=== PATIENT | male | born 1970 | race Caucasian/White ===

== ENCOUNTER 2024-11-07 23:03 | Emergency (ER) | payer MEDICAID ==
[~2024-11-07] VITALS: Ht 177.8 cm; Wt 90.7 kg
[~2024-11-07 23:03] MED LIST: ALPR2TAB2 PO
[2024-11-07 23:12] VITALS: O2SAT 98
[2024-11-08] MEDS ORDERED: CLIN-27 PO (00:01)
[2024-11-08] MEDS ORDERED: VANCOMYCIN HCL 500 MG VIAL ONE (00:31)
[2024-11-08] MEDS ORDERED: CEFTRIAXONE 1 G VIAL ONE (00:31)
[2024-11-08 00:36] LABS: BASOPHILS # (AUTO) 0.1 K/UL (0.0-0.2); DIFFERENTIAL COMMENT 1; EOSINOPHILS # (AUTO) 0.5 K/uL (0.0-0.7); EOSINOPHILS % (AUTO) 6.1 % (0.0-7.0); HEMATOCRIT 33.9 % (36.7-47.1); HEMOGLOBIN 11.1 g/dL (12.5-16.3); LYMPHOCYTES # (AUTO) 1.9 K/uL (0.8-4.8); LYMPHOCYTES % (AUTO) 22.1 % (20.5-51.5); MEAN CORPUSCULAR HEMOGLOBIN 27.7 uug (23.8-33.4); MEAN CORPUSCULAR HGB CONC 33 g/dL (32.5-36.3); MEAN CORPUSCULAR VOLUME 84.5 fL (73.0-96.2); MONOCYTES # (AUTO) 0.8 K/uL (0.1-1.30); MONOCYTES % (AUTO) 9.9 % (0.0-11.0); NEUTROPHILS # (AUTO) 5.1 K/uL (1.8-8.9); NEUTROPHILS % (AUTO) 60.9 % (38.5-71.5); PLATELET COUNT (AUTO) 171 K/uL (152-348); RED BLOOD CELL COUNT(AUTO) 4.02 MIL/uL (4.06-5.63); RED CELL DISTRIBUTION WIDTH 14.4 % (12.1-16.2); WHITE BLOOD COUNT (AUTO) 8.4 K/uL (3.6-10.2)
[2024-11-08] MEDS: CEFTRIAXONE 1 G in IV DEXTROSE 5% 50 ML IV ONE (00:40)
[2024-11-08] MEDS: VANCOMYCIN IV 500 MG in IV DEXTROSE 5% 100 ML IV ONE (00:40)
[2024-11-08] MEDS: IV NORMAL SALINE 500 ML BAG IV ONE (00:40)
[2024-11-08 00:46] LABS: ALBUMIN 2.8 g/dL (3.4-5.0); BILIRUBIN,TOTAL 0.2 mg/dL (0.2-1.0); CALCIUM 8.5 mg/dL (8.5-10.1); CREATININE 0.9 mg/dL (0.6-1.3); MAGNESIUM 2.4 mg/dL (1.8-2.4); POTASSIUM 4.8 mmol/L (3.5-5.1); TOTAL PROTEIN, SERUM 6.9 g/dL (6.4-8.2)
[2024-11-08 00:47] LABS: C-REACTIVE PROTEIN 6.08 mg/dL (0.00-0.30)
[2024-11-08] MEDS ORDERED: DOXY100C5 PO (01:05)
[2024-11-08] MEDS ORDERED: CEPH500C2 PO (01:05)
[2024-11-08 02:41] VITALS: TEMP 98
== END 2024-11-08 01:25 | disposition home or self-care (01) ==
LOC: ER 23:31
DX: L03.115 Cellulitis of right lower limb (principal); R60.0 Localized edema; F41.9 Anxiety disorder, unspecified; F17.200 Nicotine dependence, unspecified, uncomplicated; Z98.890 Other specified postprocedural states; Z60.2 Problems related to living alone
CPT/HCPCS: 99284; 36415; 93005; 96365; 80053; 83735; 85025; 84145; 85730; 86140; 87040 ×2; 96368; 83605; J0696; J3370 ×2; J7040; A4606; A4663